=== PATIENT | female | born 1990 | race Caucasian/White ===

== ENCOUNTER 2021-08-13 21:54 | Emergency (ER) | payer SELFPAY ==
[2021-08-13 22:03] VITALS: BP 144/97; PULSE 84; RESP 18; TEMP 36.7; O2SAT 98
--- NOTE | 2021-08-13 22:50 | PC.NURSE ---
Ambulatory out of ED as she told this RN she was leaving. Ambulatory out of department with steady, even, unassisted gait.
== END 2021-08-13 22:50 | disposition left against medical advice (07) ==
LOC: ANHED 22:54
DX: R10.9 Unspecified abdominal pain (principal)
CPT/HCPCS: 99199

== ENCOUNTER 2021-08-14 00:05 | Emergency (ER) | payer OTHER, SELFPAY ==
--- NOTE | ~2021-08-14 | CT_ITS ---
EXAMINATION: CT abdomen pelvis w con DATE: 08/14/2021 03:53 INDICATION: Lower abdominal pain TECHNIQUE: Computed tomography (CT) of the abdomen and pelvis was performed with 100 cc Omnipaque 350 intravenous contrast. The dose-length product was 1095.90 mGy-cm. Automated exposure control and ite rative reconstruction technique were employed. COMPARISON: None. FINDINGS: Lung bases are unremarkable. No significant pleural or pericardial effusion. Heart size nor mal. No significant vascular abnormality. No lymphadenopathy. Unremarkable appendix. Small amount of free fluid in the pelvis. 2.8 cm left adnexal cyst, likely ovarian. Nonobstructive bowel gas pattern. The liver, spleen, pancreas, adrenal glands and kidneys are unremarkable. No hydronephrosis. Gallblad roque is present. IMPRESSION: 1. Left adnexal cyst measuring 2.8 cm, likely ovarian. Small amount of free fluid in the pelvis. Reviewed, dictated and finalized at location A. IMPRESSION: 1. Left adnexal cyst measuring 2.8 cm, likely ovarian. Small amount of free flu id in the pelvis.
[2021-08-14 00:08] VITALS: BP 150/92; PULSE 86; RESP 20; TEMP 36; O2SAT 100
[2021-08-14 00:49] LABS: Basophils Percent Auto 0.5 % (0.2-1.2); Eosinophils Percent Auto 0.4 % (0-4.4); Hematocrit 40.1 % (37.0-47.0); Hemoglobin 13.4 g/dL (12.0-15.0); Immature Granulocyte Absolute 0.01 K/mm3 (0.00-0.031); Immature Granulocyte Percent A 0.1 % (0-0.5); Lymphocytes Absolute Auto 1.15 K/mm3 (0.9-3.2); Lymphocytes Percent Auto 14.4 % (18.3-44.2); Mean Corpuscular HGB Conc 33.4 g/dl (32-36); Mean Corpuscular Hemoglobin 30.5 pg (26-34); Mean Corpuscular Volume 91.1 fl (80-100); Mean Platelet Volume 10.8 fl (7.4-10.4); Monocytes Absolute Auto 0.4 K/mm3 (0.1-0.6); Neutrophils Absolute Auto 6.4 K/mm3 (1.3-6.7); Neutrophils Percent Auto 79.6 % (45.5-73.1); Platelet Count Result 268 k/mm3 (150-375); Red Cell Distribution Width 12.7 % (11.5-14.5)
[2021-08-14 00:54] LABS: Alanine Aminotransferase 15 U/L (4-35); Albumin Level 4.6 g/dL (3.5-5.1); Alkaline Phosphatase 57 U/L (38-126); Anion Gap 9 mmol/L (8-16); Aspartate Amino Transferase 21 U/L (14-36); Bilirubin,Total 0.2 mg/dL (0.2-1.3); Blood Urea Nitrogen 8 mg/dL (7-17); Calcium 9.4 mg/dL (8.4-10.2); Carbon Dioxide 24 mmol/L (22-30); Chloride 106 mmol/L (98-107); Estimated Glomerular Filt Rate > 60; Glucose 113 mg/dL (65-110); Lipase 41 U/L (23-300); Sodium 139 mmol/L (137-145)
[2021-08-14 02:12] LABS: Add Urine Microscopic? YES; Appearance Urine Clear (Clear); Bacteria Urine Trace /hpf; Bilirubin Urine Negative (Negative); Blood Urine Negative (Negative); Color Urine Colorless (Yellow); Glucose Urine UA Negative (Negative); Ketones Urine Negative (Negative); Leukocyte Esterase Ur Trace LEU/UL (Negative); Mucus Urine Rare /lpf; Nitrate Urine Negative (Negative); Protein Urine Negative (Negative); RBC Urine 0-2 /hpf (0-2); Squamous Epithelial Cell Urine Rare /hpf (Few); Urobilinogen Urine Negative mg/dL (<2.0); WBC Urine 0-3 /hpf
--- NOTE | 2021-08-14 02:28 | ED.ABDPAIN ---
HPI - Abdominal Pain General Chief Complaint: Abdominal Pain Stated Complaint: Right sided abd and back pain. diarrhea Time Seen by Provider: 08/14/21 02:16 Source: patient and RN notes reviewed Mode of arrival: ambulatory Limitations: no limitations History of Present Illness HPI narrative: This is a 31 year old female who presents for evaluation of right abdominal pain. She states she has been having intermittent, dull right mid to upper abdominal pain for 2 months. Her doctor in [place] evaluated her pain with urine, labs and an abdominal ultrasounds. She states she was diagnosed with a UTI And she took 2 rounds of antibiotics. She reports her ultrasound was unremarkable and ruled out gallstones. She has not noticed her pain for 1 week but it returned last night during her road trip. She states today she had low grade fever 99.9F . She denies urinary symptoms, nausea, vomiting. She has not taken anything for pain and she rates pain as 3/10 currently. She is moving to [place]. Related Data Allergies Allergy/AdvReac Type Severity Reaction Status Date / Time clindamycin Allergy Rash Verified 08/13/21 22:07 Review of Systems Review of Systems: All systems reviewed & are unremarkable except as noted in HPI and below Constitutional: Constitutional: Reports chills and Reports fever(s) PMFSH Past Medical History Medical History (Updated 08/14/21 @ 05:41 by Regina Hilario MD) Patient denies medical problems Surgical History Surgical History (Updated 08/14/21 @ 02:28 by Regina Hilario MD) No pertinent past surgical history Social History Social History (Updated 08/14/21 @ 02:28 by Regina Hilario MD) Smoking status: Never smoker Exam Const: General: no acute distress and alert Orientation/consciousness: patient oriented x3 Eyes: EOM: EOMs intact bilaterally Resp: Effort & Inspection: normal respiratory effort and no retractions Auscultation: clear to auscultation bilaterally Cardio: Rate: regular rate Rhythm: regular rhythm Heart sounds: no murmurs GI: GI Palp: Yes Soft to palpation, Yes Tenderness to palpation present (GI) (right flank) and No Guarding due to palpation present (GI) Auscultation: normal bowel sounds : General: Yes no CVA tenderness Back/Spine/Pelvis: Back: no CVA tenderness Skin: General skin exam: normal color Rashes: no rashes Neuro: General: patient oriented x3, moves all extremities and CN's II-XI intact bilaterally Psych: Mental Status: mental status grossly normal Affect: normal affect Course Reevaluation(s) Reevaluation #1: I Discussed with patient labs and CT are unremarkable other than left ovarian cyst. She will follow up with doctors where she is living Date: 08/14/21 Time: 05:28 Vital Signs Vital signs: Vital Signs Temperature 96.8 F L 08/14/21 00:08 Pulse Rate 86 08/14/21 00:08 Respiratory Rate 20 08/14/21 00:08 Blood Pressure 150/92 H 08/14/21 00:08 Pulse Oximetry 100 08/14/21 00:08 Temperature 96.9 F L 08/14/21 06:18 Pulse Rate 80 08/14/21 06:18 Respiratory Rate 16 08/14/21 06:18 Blood Pressure 123/67 08/14/21 06:18 Pulse Oximetry 99 08/14/21 06:18 MDM - Abdominal Pain Lab Data Attestation: I reviewed the patient's lab results. Result diagrams: 08/14/21 00:31 08/14/21 00:31 Labs: Lab Results 08/14/21 08/14/21 08/14/21 Range/Units 00:31 00:31 02:00 WBC 8.0 (4.5-10.0) K/mm3 RBC 4.40 (4.2-5.4) M/mm3 Hgb 13.4 (12.0-15.0) g/dL Hct 40.1 (37.0-47.0) % MCV 91.1 (80-100) fl MCH 30.5 (26-34) pg MCHC 33.4 (32-36) g/dl RDW 12.7 (11.5-14.5) % Plt Count 268 (150-375) k/mm3 MPV 10.8 H (7.4-10.4) fl Immature Gran % (Auto) 0.1 (0-0.5) % Neut % (Auto) 79.6 H (45.5-73.1) % Lymph % (Auto) 14.4 L (18.3-44.2) % Johnson % (Auto) 5.0 (2.6-8.5) % Eos % (Auto) 0.4 (0-4.4) % Baso % (Auto) 0.5 (0.2-1
--- NOTE | 2021-08-14 02:30 | PC.NURSE ---
Pt driving across country from [place] to [place], and arrived in ER from [facility]. c/o right abd pain x 2 months with uti symptoms. denies current symptoms of uti. no pcp. reports pain is tolerable. no s/s of acute distress.
[2021-08-14 02:55] LABS: Specific Grav Ur 1.003 (1.001-1.035)
[2021-08-14 03:33] VITALS: BP 140/76; PULSE 63; RESP 20; O2SAT 100
[2021-08-14 04:55] VITALS: BP 128/86; PULSE 83; RESP 20; TEMP 36.1; O2SAT 100
[2021-08-14 06:18] VITALS: BP 123/67; PULSE 80; RESP 16; TEMP 36.1; O2SAT 99
== END 2021-08-14 06:20 | disposition home or self-care (01) ==
PROVIDERS: Emergency Medicine; Emergency Provider General Practice
DX: R10.11 Right upper quadrant pain (principal); N94.89 Other specified conditions associated with female genital organs and menstrual cycle
CPT/HCPCS: 36415; 74177; 80053; 81001; 81025; 83690; 85025; 99284; Q9967